=== PATIENT | male | born 1980 ===

== ENCOUNTER 2018-07-11 19:08 | Inpatient (IN) | payer MEDICAID ==
[2018-07-11] MEDS ORDERED: Multivitamin (MVI) 10 ML, Thiamine 100 MG, Folic Acid 1 MG in Sodium Chloride 0.9% 1,00... IV ONE (19:51)
--- NOTE | 2018-07-11 20:02 | C.PDOC ---
History Of Present Illness 38 year old male with history of chronic alcohol intake presents to the ED complaining of suicidal ideation for 2 days. Reports he was drinking alcohol heavy for one month and stopped two days ago. Complains of nausea and vomiting. Denies HI, or any other physical symptoms. Chief Complaint (Nursing): Substance Abuse History Per: Patient History/Exam Limitations: no limitations Onset/Duration Of Symptoms: Days Current Symptoms Are (Timing): Still Present Suicide/Self Injury Attempted (Context): None Modifying Factor(s): Alcohol Associated Symptoms: Suicidal Thoughts. denies: Suicidal Plan Past Medical History Reviewed: Historical Data, Nursing Documentation, Vital Signs Vital Signs: Last Vital Signs Temp 98 F 07/11/18 19:22 Pulse 125 H 07/11/18 19:22 Resp 22 07/11/18 19:22 BP 170/117 H 07/11/18 19:22 Pulse Ox 97 07/11/18 19:22 - Medical History Other PMH: alcohol abuse Surgical History: No Surg Hx Family History: States: No Known Family Hx - Social History Hx Alcohol Use: Yes Hx Substance Use: No - Immunization History Hx Tetanus Toxoid Vaccination: No Hx Influenza Vaccination: No Hx Pneumococcal Vaccination: No Review Of Systems Except As Marked, All Systems Reviewed And Found Negative. Constitutional: Negative for: Fever, Chills Cardiovascular: Negative for: Chest Pain Respiratory: Negative for: Shortness of Breath Gastrointestinal: Positive for: Nausea, Vomiting. Negative for: Abdominal Pain, Diarrhea Psych: Positive for: Suicidal ideation Physical Exam - Physical Exam Appears: Non-toxic, Other (shaky ) Skin: Warm, Dry Head: Normacephalic Eye(s): bilateral: Normal Inspection Nose: Normal Oral Mucosa: Moist Neck: Supple Chest: Symmetrical Cardiovascular: Rhythm Regular Respiratory: Normal Breath Sounds, No Rales, No Rhonchi, No Wheezing Gastrointestinal/Abdominal: Soft, No Tenderness Extremity: Bilateral: Atraumatic Neurological/Psych: Other (alert, conscious, no focal deficit ) ED Course And Treatment - Laboratory Results Result Diagrams: 07/11/18 20:09 07/11/18 20:09 O2 Sat by Pulse Oximetry: 97 (RA) Pulse Ox Interpretation: Normal Medical Decision Making Medical Decision Making: Plan - Bloodwork - IV fluids - Librium 50mg PO - UA - 1:1 Observation Disposition Discussed With : Noah Saeed Doctor Will See Patient In The: Hospital Counseled Patient/Family Regarding: Diagnosis - Disposition Disposition: HOSPITALIZED Disposition Time: 01:45 Condition: STABLE Forms: [facility] (Malay) - POA Present On Arrival: None - Clinical Impression Clinical Impression: Depressive disorder, Alcohol use disorder - Scribe Statement The provider has reviewed the documentation as recorded by the Scribe Anais Watson All medical record entries made by the Tatianaibe were at my direction and personally dictated by me. I have reviewed the chart and agree that the record accurately reflects my personal performance of the history, physical exam, medical decision making, and the department course for this patient. I have also personally directed, reviewed, and agree with the discharge instructions and disposition.
[2018-07-11 20:15] LABS: BASO # 0.1 K/uL (0.0-0.2); BASO % 2.9 % (0.0-2.0); EOS % 1.1 % (0.0-4.0); HEMOGLOBIN 15.2 g/dL (12.0-18.0); LYMPH # 1.3 K/uL (1.0-4.3); LYMPH % 36.5 % (20.0-40.0); MEAN CORPUSCULAR HEMOGLOBIN 30.9 pg (27.0-31.0); MEAN CORPUSCULAR HGB CONC 33.6 g/dL (33.0-37.0); MEAN PLATELET VOLUME 7.8 fL (7.2-11.7); MONO # 0.4 K/uL (0.0-0.8); MONO % 11.6 % (0.0-10.0); NEUT # 1.7 K/uL (1.8-7.0); NEUT % 47.9 % (50.0-75.0); NRBC % 0.3 % (0.0-2.0); RBC 4.91 Mil/uL (4.40-5.90); RED CELL DISTRIBUTION WIDTH 15.2 % (11.5-14.5); WHITE BLOOD COUNT 3.6 K/uL (4.8-10.8)
[2018-07-11 20:26] LABS: SQUAMOUS EPITHIAL < 1 /hpf (0-5); URINE BILIRUBIN NEGATIVE (NEGATIVE); URINE CLARITY Clear (Clear); URINE COLOR Yellow (YELLOW); URINE GLUCOSE (UA) NORMAL (Normal); URINE LEUKOCYTE ESTERASE NEG Leu/uL (Negative); URINE PROTEIN 3+ mg/dL (NEGATIVE); URINE UROBILINOGEN NORMAL mg/dL (0.2-1.0)
[2018-07-11 20:27] LABS: ALB/GLOB RATIO 1.2 (1.0-2.1); ALT/SGPT 73 U/L (21-72); AST/SGOT 208 U/L (17-59); BLOOD UREA NITROGEN 8 mg/dL (9-20); CALCIUM 8.9 mg/dl (8.6-10.4); GFR NON-AFRICAN AMERICAN > 60
[2018-07-11 20:31] LABS: BARBITURATES, UR NEGATIVE (NEGATIVE); BENZODIAZEPINES, UR NEGATIVE (NEGATIVE); OPIATES, UR NEGATIVE (NEGATIVE); PHENCYCLIDINE, UR NEGATIVE (NEGATIVE); URINE BLOOD TRACE (NEGATIVE)
--- NOTE | 2018-07-12 03:35 | PCM.BM ---
<Farrukh Brar Tobi - Last Filed: 07/12/18 03:31> Treatment Plan Problems - Problems identified on initial assessmt Hopelessness/Helplessness Date Initiated: 07/12/18 Time Initiated: 02:50 Assessment reference: NA Status: Active Feeling of Worthlessness Date Initiated: 07/12/18 Time Initiated: 02:50 Assessment reference: NA Status: Active Knowledge Deficit: Alcohol Use Date Initiated: 07/12/18 Time Initiated: 02:50 Assessment reference: NA Status: Active Treatment assets and liabiliti Patient Assests: cooperative, ADL independent, negotiates basic needs Patient Liabilities: live alone, poor support system, substance abuse (Alcohol abuse), language/speech (Only speaks Vietnamese) - Milieu Protocol Maintain good personal hygiene: daily Encourage regular showers, daily Remind patient to perform daily oral care, every shift Assist patient to perform ADL's Conduct patient checks and document Observation sheet: Q15 minutes Maintain personal safety: every shift Educate patient to report safety concerns to staff, every shift Monitor environment for contraband/sharps Medication safety: Monitor for expected outcome, potential side effects: every shift, Assess barriers to learning: every shift, Assess readiness for medication education: every shift <Mignon Cox - Last Filed: 07/13/18 12:14> Family Contact Family involvement: Famliy/SO not involved - Goals for Treatment Patient goals for treatment: 'I need to go to rehab." Discharge/Continuing Care - Education Needs Education Needs: Patient Medication, Patient Coping Skills, Patient Placement options, Patient Community resources - Discharge Discharge Criteria: Tolerates medication w/o severe side effects, Reduction of target symptoms Discharge to:: Substance Abuse Rehab - Treatment Team Participation Discussed with Family/SO: No Was Patient/Family/SO present at Treatment Team Meeting: Yes <Noah Saeed - Last Filed: 07/16/18 12:04> - Diagnosis (1) Alcohol use disorder Status: Acute Interventions: 07/16/18 12:04 * Assess 7x/week regarding severity of withdrawal * Educate regarding risks, benefits, side effects and alternatives of medications * Use Motivational Interviewing for abstinence * Use CBT for relapse prevention * Medication management for withdrawal symptoms * Encourage medication assisted treatment * (2) Depressive disorder Status: Acute Interventions: 07/16/18 12:04 * Assess/adjust medications daily and /or as needed * See patient on an individual basis 7x/week to assess symptoms of depression * Monitor for side effects & effectiveness of medications *
--- NOTE | 2018-07-12 11:43 | PCM.PSYCH ---
Initial Psychiatric Evaluation - Initial Psychiatric Evaluation Type of Admission: Voluntary Legal Status: Capacity Chief Complaint (in patient's own words): "Depressed" History of Present Illness and Precipitating Events: This is a 38 year old male who is single with no children, unemployed, and lives alone. He presented to the hospital for depression with suicidal ideation. He also drinks alcohol excessively. Patient reports that a friend brought him to the hospital because he was drinking a significant amount of hard liquor for the past 8 days but did not quantify the amount. The patient confirms heavy drinking for the past 3-4 years. Patient denies completing alcohol detox in the past. Patient confirms many depressive, suicidal ideations but no plan/intention, stomach pain, tremors, nausea, and anxiety. The patient also denies smoking or other drug abuse. Patient reports depressed mood for the last 3 years and suicidal ideations for the past 2 days. Patient appears tremulous. Patient denies seizures, homicidal ideations, auditory or visual hallucinations, or paranoia. Psych Hx: depression, anxiety Fam Psych: denies PMHx: alcohol abuse Meds: denies Allergies: none SurgHx: none SocialHx: unemployed, previously a barragan Current Medications: Active Medications Generic Name Dose Route Start Last Admin Trade Name Freq PRN Reason Stop Dose Admin Clonidine HCl 0.1 mg 07/12/18 11:35 Catapres PO Q4H PRN Symptoms of alcohol withdrawl Folic Acid 1 mg 07/12/18 11:45 Folic Acid PO DAILY [facility] Influenza Virus Vaccine 60 mcg 07/13/18 10:00 Flucelvax Quad [id number] Syr IM 07/13/18 10:01 .ONCE ONE Lorazepam 1 mg 07/12/18 11:35 Ativan PO Q4H PRN Symptoms of alcohol withdrawl Lorazepam 2 mg 07/12/18 14:00 Ativan PO 07/17/18 13:59 .TAPER AQUILES Taper Multivitamins 1 tab 07/12/18 11:45 Hexavitamin PO DAILY [facility] Pneumococcal Polyvalent Vaccine 0.5 ml 07/13/18 10:30 Pneumovax 23 Vaccine IM 07/13/18 10:31 .ONCE ONE Thiamine HCl 100 mg 07/12/18 11:45 Vitamin B1 Tab PO DAILY AQUILES Past Psychiatric History - Past Psychiatric History Previous Treatment History: None Pertinent Medical Hx (Current Medical&Sleep Prob, Allergies): Allergies Allergy/AdvReac Type Severity Reaction Status Date / Time No Known Allergies Allergy Unverified 07/11/18 19:26 Review of Systems - Neurological Neurological: Tremor - Psychiatric Psychiatric: Abnormal Sleep Pattern, Anhedonia, Behavioral Changes, Depression, Difficulty Concentrating, Mood Swings. absent: Hallucinations, Homicidal Ideation, Paranoia, Suicidal Ideation Mental Status Examination - Personal Presentation Personal Presentation: Looks older than stated age - Affect Affect: Constricted - Motor Activity Motor Activity: Calm - Reliability in Providing Information Reliability in Providing Information: Good - Speech Speech: Organized - Mood Mood: Depressed, Anxious - Formal Thought Process Formal Thought Process: No Impairment - Cognitive Functions Orientation: Person, Place, Situation, Time Sensorium: Alert Attention/Concentration: Easily distracted Estimate of Intelligence: Average Judgement: Intact, as evidence by: Insight regarding need for hospitalization Memory: Recent intact, as evidence by: Ability to recall events of the day, Remote impaired as evidenced by: Inability to recall historical events - Risk Risk: Withdrawal, Diminished functioning - Strength & Assets Inventory Strength & Assets Inventory: Cooperative - Limitations Limitations: Other DSM 5 DX - DSM 5 DSM 5 Diagnosis: Major depressive disorder, single, severe Alcohol use disorder, severe Alcohol withdrawal - Recommended/Plan of Treatment Treatment Recommendations and Plan of Treatment: Start Lexapro for depression Taper with Ativan Start Folic Acid, Thiamine, Multivitamins Gabapentin for augmentation Trazodone for sleep As needed medications Clonidine, Atarax, and Motrin All risks, benefits and alternatives of the meds discussed, and the pt agreed and understood. Attend groups and activities Supportive therapy and psychoeducation [place] for abstinence CBT for relapse prevention Encourage MAT Refer to rehab or IOP, and self-help groups Teach healthy lifestyle methods, i.e. diet, exercise, meditation 33 min Projected ELOS: 4-5 days Prognosis: good w treatment
[2018-07-12] MEDS: Multiple Vitamins Tab PO SCH (12:28)
[2018-07-13] MEDS: Multiple Vitamins Tab PO SCH (09:40)
[2018-07-13] MEDS ORDERED: Influenza Vaccine 60 mcg/0.5 mL SYR (4YR UP) IM ONE (10:00)
[2018-07-13] MEDS ORDERED: Pneumococcal 23-Valent Vaccine IM ONE (10:30)
[2018-07-14] MEDS: Aritificial Tears (15ml) OU PRN (09:24)
[2018-07-14] MEDS: Multiple Vitamins Tab PO SCH (09:26)
--- NOTE | 2018-07-14 23:05 | PCM.PYCHPN ---
Psychiatric Progress Note - Psychiatric Progress Note Patient seen today, length of contact: 15 minutes Patient Chief Complaint: I am feeling little better. Problems Identified/Issues Discussed: Patient seen, chart reviewed, case discussed with the staff. Issues related to illness and treatment were discussed with the patient and staff. Reported compliant with treatment with no adverse effects. Tolerating treatment very well. Mood reported as anxious. Affect appropriate. Patient reported feeling little better as patient still has some withdrawal symptoms including anxiety, headache and body aches. Initially staff reported that patient was irritable. Aftercare discussed with the patient. Patient denied any delusions, auditory or visual hallucinations, no suicidal ideations or homicidal ideations at the time of evaluation Medical Problems: None reported Diagnostic Results: Reviewed Medication Change: No Medical Record Reviewed: Yes Mental Status Examination - Cognitive Function Orientation: Person, Place, Situation, Time Memory: Intact Attention: WNL Concentration: WNL Association: WN Fund of Knowledge: [facility] Decription of patient's judgement and insights: Fair - Mood Mood: Anxious - Affect Affect: Other (Appropriate) - Speech Speech: Appropriate (None) - Formal Thought Process Formal Thought Process: No Impairment Psychotic Thoughts and Behaviors: None - Suicidal Ideation Suicidal Ideation: No - Homicidal Ideation Homicidal Ideation: No Goal/Treatment Plan - Goal/Treatment Plan Need for Continued Stay: Remain at risks for inpatient hospitalization, Discharge may exacerbated symptoms, Severe functional impairment Progress Toward Problem(s) and Goals/Treatment Plan: Patient education. Supportive therapy. CBT for relapse prevention. [place] for abstinence. Continue treatment as before. Patient will go to [facility] for follow-up care after discharge from the hospital. Estimated Date of D/C: 07/17/18 - Smoking Cessation Smoking Cessation Initiated: No
[2018-07-15] MEDS: Multiple Vitamins Tab PO SCH (09:58)
[2018-07-16 06:56] VITALS: O2SAT 96
[2018-07-16] MEDS: Multiple Vitamins Tab PO SCH (09:26)
[2018-07-16] MEDS: Aritificial Tears (15ml) OU PRN ×2 (09:33→17:23)
--- NOTE | 2018-07-16 12:00 | PCM.PYCHPN ---
Psychiatric Progress Note - Psychiatric Progress Note Patient seen today, length of contact: 16 min Patient Chief Complaint: "Not good" Problems Identified/Issues Discussed: The pt is seen, chart reviewed, case discussed with staff. Support and psychoeducation given, CBT and [place] used briefly Pt is improving slowly and needs more time, still has ongoing symptoms. No SEs from medications, risks discussed. After care discussed Medication Change: Yes (meds adjusted) Medical Record Reviewed: Yes Mental Status Examination - Cognitive Function Orientation: Person, Place, Situation, Time Memory: Intact Attention: WNL Concentration: WNL Association: WNL Fund of Knowledge: WNL - Mood Mood: Depressed, Anxious - Affect Affect: Other (Appropriate) - Speech Speech: Appropriate (None) - Formal Thought Process Formal Thought Process: No Impairment - Suicidal Ideation Suicidal Ideation: No - Homicidal Ideation Homicidal Ideation: No Goal/Treatment Plan - Goal/Treatment Plan Need for Continued Stay: Remain at risks for inpatient hospitalization, Discharge may exacerbated symptoms, Severe functional impairment Progress Toward Problem(s) and Goals/Treatment Plan: Lexapro for depression Taper with Ativan Start Folic Acid, Thiamine, Multivitamins Gabapentin for augmentation Trazodone for sleep As needed medications Clonidine, Atarax, and Motrin All risks, benefits and alternatives of the meds discussed, and the pt agreed and understood. Attend groups and activities Supportive therapy and psychoeducation [place] for abstinence CBT for relapse prevention Encourage MAT Refer to rehab or IOP, and self-help groups Teach healthy lifestyle methods, i.e. diet, exercise, meditation Estimated Date of D/C: 07/17/18
--- NOTE | 2018-07-16 12:00 | PCM.PYCHPN ---
Psychiatric Progress Note - Psychiatric Progress Note Patient seen today, length of contact: 16 min Patient Chief Complaint: "A litttle better. I threw up" Problems Identified/Issues Discussed: The pt is seen, chart reviewed, case discussed with staff. The pt is compliant with medications and reports no side-effects. Symptoms are improving but needs more time to stabilize. Pt attends groups and activities. Support given, psycho-education provided. After care discussed. Medication Change: No Medical Record Reviewed: Yes Mental Status Examination - Cognitive Function Orientation: Person, Place, Situation, Time Memory: Intact Attention: WNL Concentration: WNL Association: WN Fund of Knowledge: WN - Mood Mood: Anxious - Affect Affect: Other (Appropriate) - Speech Speech: Appropriate (None) - Formal Thought Process Formal Thought Process: No Impairment - Suicidal Ideation Suicidal Ideation: No - Homicidal Ideation Homicidal Ideation: No Goal/Treatment Plan - Goal/Treatment Plan Need for Continued Stay: Remain at risks for inpatient hospitalization, Discharge may exacerbated symptoms, Severe functional impairment Progress Toward Problem(s) and Goals/Treatment Plan: Lexapro for depression Taper with Ativan Start Folic Acid, Thiamine, Multivitamins Gabapentin for augmentation Trazodone for sleep As needed medications Clonidine, Atarax, and Motrin All risks, benefits and alternatives of the meds discussed, and the pt agreed and understood. Attend groups and activities Supportive therapy and psychoeducation [place] for abstinence CBT for relapse prevention Encourage MAT Refer to rehab or IOP, and self-help groups Teach healthy lifestyle methods, i.e. diet, exercise, meditation Estimated Date of D/C: 07/17/18
[2018-07-17] MEDS: Multiple Vitamins Tab PO SCH (09:51)
[2018-07-17 10:21] VITALS: RESP 18
--- NOTE | 2018-07-17 13:13 | PCM.PYCHPN ---
Psychiatric Progress Note - Psychiatric Progress Note Patient seen today, length of contact: 15 min Patient Chief Complaint: "Tired" Problems Identified/Issues Discussed: The pt is seen again, chart reviewed, and case is discussed with the team. The pt denies any side-effects from meds. Attends activities and groups, brief individual therapy provided Not ready for discharge due to ongoing symptoms and high relapse risk. After care discussed again. He is rejected by [facility] but will likely go to [facility] Medication Change: Yes (meds adjusted) Medical Record Reviewed: Yes Mental Status Examination - Cognitive Function Orientation: Person, Place, Situation, Time Memory: Intact Attention: WNL Concentration: WNL Association: WNL Fund of Knowledge: WNL - Mood Mood: Depressed, Anxious - Affect Affect: Other (Appropriate) - Speech Speech: Appropriate (None) - Formal Thought Process Formal Thought Process: No Impairment - Suicidal Ideation Suicidal Ideation: No - Homicidal Ideation Homicidal Ideation: No Goal/Treatment Plan - Goal/Treatment Plan Need for Continued Stay: Remain at risks for inpatient hospitalization, Discharg e may exacerbated symptoms, Severe functional impairment Progress Toward Problem(s) and Goals/Treatment Plan: Lexapro for depression Taper with Ativan Start Folic Acid, Thiamine, Multivitamins Gabapentin for augmentation Trazodone for sleep As needed medications Clonidine, Atarax, and Motrin All risks, benefits and alternatives of the meds discussed, and the pt agreed and understood. Attend groups and activities Supportive therapy and psychoeducation [place] for abstinence CBT for relapse prevention Encourage MAT Refer to rehab or IOP, and self-help groups Teach healthy lifestyle methods, i.e. diet, exercise, meditation Estimated Date of D/C: 07/17/18
--- NOTE | 2018-07-18 09:00 | PCM.PYCHDC ---
Mental Status Examination - Mental Status Examination Orientation: Person Discharge Summary - Discharge Note Consultations:: List each consultation separately and include: 1. Reason for request. 2. Findings. 3. Follow-up Summary of Hospital Course include:: 1. Description of specific treatment plan utilized for patients during their course of treatmen. 2. Summarize the time- course for resolution of acute symptoms and/or regressed behaviors. 3. Describe issues identified and worked on during hospitalization. 4. Describe medication utilized. 5. Describe medical problems identified and treated. 6. Reassessment of suicide risk Summary of Hospital Course: This is a 38 year old male who is single with no children, unemployed, and lives alone. He presented to the hospital for depression with suicidal ideation. He also drinks alcohol excessively. Patient reports that a friend brought him to the hospital because he was drinking a significant amount of hard liquor for the past 8 days but did not quantify the amount. The patient confirms heavy drinking for the past 3-4 years. Patient denies completing alcohol detox in the past. Patient confirms many depressive, suicidal ideations but no plan/intention, stomach pain, tremors, nausea, and anxiety. The patient also denies smoking or other drug abuse. Patient reports depressed mood for the last 3 years and suicidal ideations for the past 2 days. Patient appears tremulous. Patient denies seizures, homicidal ideations, auditory or visual hallucinations, or paranoia. 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 - Diagnosis (1) Alcohol use disorder Current Visit: Yes Status: Acute (2) Depressive disorder Current Visit: Yes Status: Acute - Final Diagnosis (DSM 5) Condition upon Discharge: STABLE Disposition: HOME/ ROUTINE Follow-up Treatment Plan: Lexapro for depression Taper with Ativan Start Folic Acid, Thiamine, Multivitamins Gabapentin for augmentation Trazodone for sleep As needed medications Clonidine, Atarax, and Motrin All risks, benefits and alternatives of the meds discussed, and the pt agreed and understood. Attend groups and activities Supportive therapy and psychoeducation [place] for abstinence CBT for relapse prevention Encourage MAT Refer to rehab or IOP, and self-help groups Teach healthy lifestyle methods, i.e. diet, exercise, meditation Prescriptions/Medication Reconciliation: traZODone [Desyrel] 50 mg PO HS #30 tab
[2018-07-18] MEDS: Multiple Vitamins Tab PO SCH (10:07)
[2018-07-18 10:24] VITALS: BP 133/90; PULSE 72; TEMP 98.7
== END 2018-07-18 10:15 | disposition home or self-care (01) | DRG 751 ==
LOC: C.ER 19:08 → C.5E 07-12 01:47
PROVIDERS: ADMIT Psychiatry & Neurology Psychiatry; ATTEND Psychiatry & Neurology Psychiatry
PROC: GZHZZZZ Group Psychotherapy (ICD-10-PCS; principal; 2018-07-12)
PROC: GZ56ZZZ Individual Psychotherapy, Supportive (ICD-10-PCS; 2018-07-12)
DX: F32.2 Major depressive disorder, single episode, severe without psychotic features (principal); R45.851 Suicidal ideations; F41.9 Anxiety disorder, unspecified; F10.230 Alcohol dependence with withdrawal, uncomplicated; Y90.8 Blood alcohol level of 240 mg/100 ml or more